=== PATIENT | female | born 1980 | race African-American/Black ===

== ENCOUNTER 2024-04-15 23:51 | Emergency (ER) | payer OTHER ==
[2024-04-16 00:03] VITALS: BP 118/90; PULSE 95; RESP 18; TEMP 98.3; BMI 43.4
== END 2024-04-16 02:48 | disposition home or self-care (01) ==
LOC: JER 23:51
DX: M79.10 Myalgia, unspecified site (principal); R05.1 Acute cough; R06.02 Shortness of breath; R61 Generalized hyperhidrosis; R00.0 Tachycardia, unspecified; Z20.822 Contact with and (suspected) exposure to COVID-19
CPT/HCPCS: 0241U-QW; 71046-TC-FY; 93005; 93010; 99285-25